=== PATIENT | male | born 1980 | race Caucasian/White ===

== ENCOUNTER 2022-10-24 14:07 | Emergency (ER) | payer OTHER ==
[~2022-10-24] VITALS: Ht 177.8 cm; Wt 106.6 kg
[2022-10-24] MEDS ORDERED: fentaNYL INJ 100 MCG/2 ML AMP IVP STA (14:25)
--- NOTE | 2022-10-24 14:29 | ED Upper Extremity ---
General Stated Complaint: LEFT RING FINGER LAC Source: patient Exam Limitations: no limitations History of Present Illness Date Seen by Provider: Oct 24, 2022 Time Seen by Provider: 14:27 Initial Comments Patient is a 42-year-old male who presents to ED with a open fracture of his distal left middle finger. 1 hour ago patient states he was grinding meat when his finger got caught with a glove resulting in a amputation distally of his left middle finger. Bleeding controlled direct pressure. Took 2 500 mg of Tylenol. Not up-to-date his tetanus. Distal numbness and tingling. Patient states after they were bandaging his finger he passed out. Patient is able to move his finger at the DIP joint. Allergies and Home Medications Allergies Coded Allergies: No Known Drug Allergies (Unverified , 10/24/22) Patient Home Medication List Home Medication List Reviewed: Yes Cephalexin (Cephalexin) 500 Mg Tablet, 500 MG PO QID Prescribed by: WILMER LEE on 10/24/22 1532 Hydrocodone/Acetaminophen (Hydrocodone-Acetamin 7.5-325) 7.5 Mg-325 Mg Tablet, 1 EACH PO Q4H PRN for PAIN-BREAKTHROUGH Prescribed by: WILMER LEE on 10/24/22 1532 Review of Systems Constitutional: No chills, No diaphoresis, No malaise, No weakness EENTM: No blurred vision, No double vision Respiratory: No cough, No dyspnea on exertion Cardiovascular: No chest pain Gastrointestinal: No abdominal pain, No diarrhea, No nausea, No vomiting Genitourinary: No decreased output Musculoskeletal: No back pain, No joint pain Skin: No change in color, No change in hair/nails All Other Systems Reviewed Negative Unless Noted: Yes Physical Exam Vital Signs Vital Signs - First Documented 10/24/22 14:14 Temp 36.5 Pulse 83 Resp 19 B/P (MAP) 161/97 (118) O2 Delivery Room Air Capillary Refill : Height, Weight, BMI Height: '" Weight: lbs. oz. kg; BMI Method: General Appearance: WD/WN, no apparent distress HEENT: PERRL/EOMI, normal ENT inspection, TMs normal, pharynx normal Neck: non-tender, full range of motion, supple, normal inspection Cardiovascular: regular rate, rhythm, no edema, no gallop, no JVD Respiratory: chest non-tender, lungs clear, normal breath sounds, no respiratory distress Gastrointestinal: normal bowel sounds, non tender, soft, no organomegaly Shoulder: normal inspection, non-tender Wrist: Yes normal inspection, Yes non-tender, Yes no evidence of injury Hand: Left, nail injury (Amputation of the left distal middle finger above the DIP joint with complete loss of nail) Neurologic/Psychiatric: size stamper II-XII nml as tested, no motor/sensory deficits, alert, normal mood/affect, oriented x 3 Skin: other (Amputation of the left distal middle finger.) Progress/Results/Core Measures Results/Orders My Orders Orders - OBEY GIRALDO Hand, Left, 3 Views (10/24/22 14:25) Dipht,Pertuss(Acell),Tet Adult (Boostrix (10/24/22 14:30) Fentanyl Inj (Sublimaze Injection) (10/24/22 14:25) Cefazolin Injection (Ancef Injection) (10/24/22 14:30) Morphine Injection (Morphine Injection (10/24/22 15:30) Medications Given in ED Current Medications Medications Dose Ordered Sig/Della Route Start Time Stop Time Status Last Admin Dose Admin Cefazolin Sodium 2000 mg/Sodium Chloride 50 ml @ 100 mls/hr ONCE ONCE IV 10/24/22 14:30 10/24/22 14:59 DC 10/24/22 15:29 100 MLS/HR Diphtheria/ Tetanus/Acell Pertussis 0.5 ml ONCE ONCE IM 10/24/22 14:30 10/24/22 14:31 DC 10/24/22 14:37 0.5 ML Morphine Sulfate 4 mg ONCE ONCE IVP 10/24/22 15:30 10/24/22 15:31 DC 10/24/22 15:46 4 MG Vital Signs/I&O 10/24/22 14:14 Temp 36.5 Pulse 83 Resp 19 B/P (MAP) 161/97 (118) O2 Delivery Room Air Departure Communication (PCP) Patient with a injury to his left distal middle finger. This occurred about 1 hour before arrival. Finger got caught in a bit grinder. On exam no active bleeding. Distal tuft amputation. Patient was given a dose of Ancef 2g and updated his tetanus. X-ray shows amputation of the distal tuft of the middle finger. Patient was discussed with hand surgeon Dr. Pace at [facility] in [place]. Discussed 2 options allow the area to heal by secondary intention or grind the finger down. Recommend following up early next week. Provided number and discharge instructions for patient to call on Wednesday. Recommend Keflex prophylactically, Vaseline gauze daily change. Patient was given instructions. Patient Was given dose of fentanyl and morphine here for pain. Discussed wound care and return precautions such as increasing pain, swelling or redness. Return precautions were discussed with patient. Impression Primary Impression: Fingertip amputation Disposition: HOME, SELF-CARE Condition: Stable Departure-Patient Inst. Decision time for Depature: 15:30 Referrals: [facility] [place]YSIC[place] ([place]P) Primary Care Physician Patient Instructions: Amputation of the Finger or Fingertip (DC) Add. Discharge Instructions: Take Keflex for infectious prophylactically. Take pain medication as prescribed. Recommend following up with Dr. Pace hand surgeon. Recommend calling him on Wednesday [phone]. Switch to gauze daily. If any increasing pain, swelling or redness return back to ED Scripts Hydrocodone/Acetaminophen (Hydrocodone-Acetamin 7.5-325) 7.5 Mg-325 Mg Tablet 1 EACH PO Q4H PRN for PAIN-BREAKTHROUGH, #15 TAB Prov: OBEY GIRALDO 10/24/22 Cephalexin (Cephalexin) 500 Mg Tablet 500 MG PO QID for 7 Days, #28 TAB Prov: OBEY GIRALDO 10/24/22 OBEY GIRALDO Oct 24, 2022 14:29
[2022-10-24] MEDS ORDERED: TETANUS,DIPTH,PERTUSS P/F (BOOSTRIX) 0.5 ML VIAL IM ONE (14:30)
[2022-10-24] MEDS ORDERED: ceFAZolin INJECTION 2,000 MG in NS (IVPB) 50 ML IV ONE (14:30)
--- NOTE | 2022-10-24 15:02 | Diagnostic Imaging Report ---
EXAMINATION: Left hand 3 views. HISTORY: Hand injury. COMPARISON: None available. FINDINGS: There has been an amputation of the distal left middle finger. There is partial amputation of the tuft of the distal phalanx. Remaining fingers are normal. Joint spaces are normal. IMPRESSION: Amputation through the tuft of the distal phalanx of the left middle finger. Dictated by: Dictated on workstation # [id number]
[2022-10-24] MEDS ORDERED: morphine INJ 10 MG/ML 1ML (SYR OR VIAL) IVP ONE (15:30)
[2022-10-24] MEDS ORDERED: HYDR-3817 PO (15:32)
[2022-10-24] MEDS ORDERED: CEPH500T PO (15:32)
[2022-10-24 16:47] VITALS: BP 137/86
== END 2022-10-24 16:47 | disposition home or self-care (01) ==
LOC: EDUNIT# 14:07 → ER 14:12
DX: S68.123A Partial traumatic metacarpophalangeal amputation of left middle finger, initial encounter (principal); Z23 Encounter for immunization; W31.89XA Contact with other specified machinery, initial encounter
CPT/HCPCS: 73130; 90715